=== PATIENT | female | born 1970 | race American Indian/Alaskan Native ===

== ENCOUNTER 2018-05-11 05:51 | Inpatient (IN) | payer BC ==
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
--- NOTE | 2018-05-10 10:42 | Anesthesia Consultation ---
Addendum entered and electronically signed by EULALIO WHITTEN MD 05/11/18 08:00: Examined immediately prior to procedure. No change in health since seen in pre- assessment. Consented for preop TAP block. Original Note: Anesthesia Consult and Med Hx Date of service: 05/10/18 - Airway Anesthetic Teeth Evaluation: Poor ROM Head & Neck: Adequate Mental/Hyoid Distance: Adequate Mallampati Class: Class III Intubation Access Assessment: Possibly Difficult - Pulmonary Exam CTA: Yes - Cardiac Exam Cardiac Exam: RRR - Pre-Operative Health Status ASA Pre-Surgery Classification: ASA3 Nerve Block: Will attempt TAP, pt is morbidly obese - Pulmonary Hx Asthma: Yes (Last used inhaler 1 mo ago) - Central Nervous System Hx Psychiatric Problems: No - Other Systems Hx Cancer: No
[2018-05-10 10:59] LABS: Basophils % (Auto) 0.8 % (0.0-1.8); Eosinophils # (Auto) 0.2 K/mm3 (0.0-0.4); Hematocrit 37.7 % (30.3-42.9); Lymphocytes # (Auto) 2.3 K/mm3 (1.2-5.4); Lymphocytes % (Auto) 46.5 % (13.4-35.0); Mean Corpuscular HGB Conc 32 % (30-34); Mean Corpuscular Volume 92 fl (79-97); Monocytes # (Auto) 0.5 K/mm3 (0.0-0.8); Monocytes % (Auto) 9.3 % (0.0-7.3); Platelet Count 293 K/mm3 (140-440); Red Blood Count 4.11 M/mm3 (3.65-5.03); Red Cell Distribution Width 14.4 % (13.2-15.2)
[2018-05-10 11:20] LABS: BUN/Creatinine Ratio 13; Blood Urea Nitrogen 10 mg/dL (7-17); Calcium 8.8 mg/dL (8.4-10.2); Hemolysis Index 6
[2018-05-11] MEDS ORDERED: PEPCID IV NR (06:00)
[2018-05-11] MEDS ORDERED: VERSED IV NR (06:00)
[2018-05-11] MEDS ORDERED: NEURONTIN PO NR (06:00)
[2018-05-11] MEDS ORDERED: LACTATED RINGERS 1,000 ML IV SCH (06:00)
[2018-05-11] MEDS ORDERED: NACL BACTERIOSTATIC INFILTRATI ONE (06:30)
[2018-05-11] MEDS ORDERED: CLEOCIN 600 MG/50 mL 600 MG/50 ML BAG IV SCH (07:00)
[2018-05-11] MEDS ORDERED: GENTAMICIN 160 MG in NACL 0.9% 100 ML IV SCH (07:00)
[2018-05-11] MEDS ORDERED: NEOSPORIN GU IR ONE ×2 (07:18→08:45)
[2018-05-11] MEDS ORDERED: SUBLIMAZE ONE (07:20)
[2018-05-11] MEDS ORDERED: DIPRIVAN 10 MG/ML IV ONE (07:21)
[2018-05-11] MEDS ORDERED: XYLOCAINE MPF 2% ONE (07:21)
[2018-05-11] MEDS ORDERED: ZOFRAN ONE (07:22)
[2018-05-11] MEDS ORDERED: MARCAINE 0.25% INFILTRATI ONE (07:22)
[2018-05-11] MEDS ORDERED: DECADRON ONE ×2 (07:22)
[2018-05-11] MEDS ORDERED: XYLOCAINE 1% 20 mL ONE (07:22)
[2018-05-11] MEDS ORDERED: ZEMURON IV ONE ×3 (07:23→11:27)
[2018-05-11] MEDS ORDERED: ROBINUL ONE ×2 (07:23→13:16)
--- NOTE | 2018-05-11 08:01 | Anesthesia Day of Surgery ---
Anesthesia Day of Surgery - Day of Surgery Patient Examined: Yes Patient H&P Reviewed: Yes Patient is NPO: Yes
[2018-05-11] MEDS ORDERED: NACL 0.9% IR ONE ×3 (08:44→08:45)
[2018-05-11] MEDS ORDERED: NACL 0.9% 100 ML ONE (09:51)
[2018-05-11] MEDS ORDERED: NEO SYNEPHRINE ONE (09:51)
[2018-05-11] MEDS ORDERED: METHYLENE BLUE ONE (11:14)
[2018-05-11] MEDS ORDERED: METHYLENE BLUE IRRIGATION ONE (11:27)
--- NOTE | 2018-05-11 13:00 | Post Operative Note ---
Date of procedure: 05/11/18 Pre-op diagnosis: sigmoid colon injury Post-op diagnosis: same Findings: 3 cm serosal tear in anterior wall of sigmoid colon. No discrete perforation/hole seen. +leak test. After repair, leak test was negative Procedure: Robotic primary repair of sigmoid colon injury Anesthesia: ASHLEY Surgeon: PABLO JOE Estimated blood loss: none Condition: stable Disposition: other (OR - Dr. Mills to complete procedure)
[2018-05-11] MEDS ORDERED: DILAUDID ONE ×3 (13:17→14:58)
--- NOTE | 2018-05-11 13:19 | Operative Report ---
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 Valdez Findings: Uterus approximately 18-20 weeks in size with multiple leiomyomata largest approximately 12 cm in diameter normal tubes and ovaries bilaterally Specimen(s): Uterus with an cervix and bilateral fallopian tubes Procedure: Patient was brought to the operating room where general anesthesia was induced without difficulty. Patient was placed in the dorsal lithotomy position. Prepped and draped in the usual sterile manner for robotic procedure. Valle catheter was placed without difficulty. Speculum was placed in the vagina. A large V-Care Uterine manipulator was placed without difficulty. Attention was now switched to the patient's abdomen. A vertical supra-umbilicus incision was made with a scalpel. A 10-12 trocar was placed in this incision under direct visualization. Intra-abdominal placement was verified with no evidence of internal organ damage. The patient pelvic findings were noted as above. It was determined that the patient was a candidate for robotic procedure. On both sides the umbilical incision at about 8 cm, incisions were made for robotic trocar. Each robotic trocar was placed under direct visualization with no evidence of internal organ damage. Two assistant customer service manager ports were then placed. One 8-10 trocar was placed 2 fingerbreadths above the right iliac crest. The second [address] between the camera port and the right robotic arms port. At this time the patient was placed in extreme Trendelenburg. The da Pepito robot was then docked on the patient's left side. The trocars connected to the robot appropriately. At this time I took my place under the robotic operating muñoz. Starting on the patient's right side the mesosalpinx of the tube were cauterized for mild distal to proximal tube. Bipolar cautery was placed across the proximal portion of the fallopian tube. This area was cauterized and cut the fallopian tube was then removed from the large porcelain buildup assistant port. Utero-ovarian complex was cauterized and cut. This was followed by cauterizing and cutting the right fallopian tube and right round l igament. The broad ligament was then opened. The bladder flap was formed anteriorly. The posterior broad ligament was then excised. The uterine vessels were skeletonized. The ureter was clearly seen out of the operative field. The bladder was pushed away from the anterior uterus. Attention was then switched to the patient's left side. The same procedure was repeated on the left side with perform the salpingectomy followed by isolating the uterine vessels cauterized and cutting and completing the bladder flap from the left side. At this time the uterus was appearing very cyanotic. After inspecting the bladder flap insured no evidence of bladder injury, the colpotomy was then started. Incision started at 6:00 until the V-Care could be seen. This incision was extended from 6:00 to 9:00. Then from 6:00 to 3:00. Then from 9:00 to 12:00. This incision was extended from 3:00 to 12:00. At this time colpotomy was complete with no evidence of adjacent organ damage. The large ut erus was removed through the colpotomy with coring incisions and multiple removals of myomas through the vagina. Your one attempt to regrasped the specimen did type and grasped the sigmoid colon with tenaculum revealed serosal tears. The entire specimen was removed through the vagina. At this time a return to my position under the operating muñoz. The vaginal cuff was irrigated and cauterized and found to be hemostatic. The cuff was closed with roboticly using 0 V- Lock suture. This closure was hemostatic after irrigation and Bovie. All pedicles were inspected and found to be hemostatic. The ureters were identified bilaterally and found to be functioning normal. The patient had clear urine in the Valle catheter with no evidence of mixture with blood. Methylene blue was then inserted into the patient's bladder 180 mL with no evidence of leak. Patient pelvis was then filled with irrigation fluid. Patient was undocked from the da Pepito placed flat and reverse Trendelenburg air tested in the rectum with the septal did reveal some bubbles and that time Dr. Robles was then consulted. Please see Dr.'s dictated operative note. All instruments were then removed. The large trocar sites were closed in layers and 4-0 Vicryl. The smaller incisions were closed subcuticularly with 4-0 Vicryl. The patient tolerated procedure well. She was awakened in the operating room and accompanied to the recovery room in good condition.
[2018-05-11] MEDS ORDERED: LACTATED RINGERS 1,000 ML ONE (14:27)
[2018-05-11] MEDS: DILAUDID IV PRN ×2 (14:29→14:58)
--- NOTE | 2018-05-11 14:54 | Post Anesthesia Evaluation ---
- Post Anesthesia Evaluation Patient Participated: Yes Airway Patent: Yes Stable Respiratory Function: Yes Nausea/Vomiting: No Temp > 96.8F: Yes Pain Manageable: Yes Adequeate Hydration: Yes Anesthesia Complications: No
[2018-05-11] MEDS ORDERED: D5LR 1,000 ML IV SCH (16:00)
[2018-05-11] MEDS: TORADOL IV SCH ×2 (16:15→22:50)
[2018-05-11] MEDS: CLEOCIN 600 MG/50 mL 600 MG/50 ML BAG IV SCH (18:00)
[2018-05-11] MEDS: GENTAMICIN/NS 80 MG/100 ML 100 ML IV SCH (18:30)
[2018-05-11] MEDS ORDERED: MORPHINE IV ONE (20:57)
[2018-05-12 04:25] LABS: Hemoglobin 10.7 gm/dl (10.1-14.3)
[2018-05-12] MEDS: CLEOCIN 600 MG/50 mL 600 MG/50 ML BAG IV SCH (05:00)
[2018-05-12] MEDS: TORADOL IV SCH ×2 (05:01→11:20)
[2018-05-12] MEDS: GENTAMICIN/NS 80 MG/100 ML 100 ML IV SCH (06:11)
--- NOTE | 2018-05-12 08:46 | Progress Note ---
Assessment and Plan POD#1, Doing well, good UO, no complaints DINORA drain intact, minimal serosanguinous fluid in bulb. ~300mL total fluid from drain over the last 24h. H/H stable. Dr. Gamble to evaluate patient today for ? removal of drain Will consider d/c home this pm - Patient Problems (1) History of robot-assisted laparoscopic hysterectomy Current Visit: Yes Status: Acute (2) Status post bilateral salpingectomy Current Visit: Yes Status: Acute (3) Serosal tear of colon Current Visit: Yes Status: Acute Subjective Date of service: 05/12/18 Patient Reports: Positive: no new complaints, tolerating liquids well, no flatus, afebrile Objective Vital Signs - 12hr 05/11/18 05/12/18 05/12/18 22:19 02:07 05:40 Temperature 98.9 F 98.8 F 98.6 F Pulse Rate 85 83 87 Respiratory 16 18 18 Rate Blood Pressure 142/76 112/63 122/65 O2 Sat by Pulse 98 94 96 Oximetry 05/12/18 08:05 Temperature 98.6 F Pulse Rate Respiratory 18 Rate Blood Pressure 125/64 O2 Sat by Pulse Oximetry - General physical appearance well developed, well nourished, no distress - Respiratory normal expansion, normal respiratory effort, clear to percussion - Abdomen soft, bowel sounds normal, not distended, surgical scars (intact with slight erythema at RLQ incision, no drainage) - Psychiatric oriented to time, oriented to person, oriented to place, speech is normal, memory intact - Labs 05/12/18 04:12 05/10/18 10:30
[2018-05-12] MEDS: COLACE PO SCH ×2 (09:00→21:24)
[2018-05-12] MEDS: NORCO 5/325 PO PRN ×3 (09:00→21:24)
--- NOTE | 2018-05-12 14:19 | Progress Note ---
Assessment and Plan - Patient Problems (1) Serosal tear of colon Current Visit: Yes Status: Acute Plan to address problem: Pt stable. s/p robotic assisted repair of serosal tear of colon - 05/11/18 - POD#1. Patient appears to be doing very well. We will advance to a regular diet. As a precaution, would prefer that patient have a bowel movement before removing the drain and discharge. Discussed with the patient and she was in agreement. Also discussed with Dr. Arguello and Dr. Robles. Subjective Date of service: 05/12/18 Patient Reports: Positive: feels better, pain is less, tolerating liquids well, no bowel movement. Negative: nausea, vomiting Objective Vital Signs - 12hr 05/12/18 05/12/18 05/12/18 05:40 08:05 12:00 Temperature 98.6 F 98.6 F 98.5 F Pulse Rate 87 76 Respiratory 18 18 18 Rate Blood Pressure 122/65 125/64 Blood Pressure 139/76 [Right] O2 Sat by Pulse 96 98 Oximetry - General physical appearance no distress, no pain, other (looks well. good spirits) - Respiratory normal expansion, normal respiratory effort - Abdomen soft, tender (appropriate over the incisions. No tenderness elsewhere), not d istended, not guarding, not rigid, other (drain - serosang - minimal amount) - Psychiatric oriented to time, oriented to person, oriented to place, speech is normal, memory intact - Labs 05/12/18 04:12 05/10/18 10:30
[2018-05-12] MEDS ORDERED: APRESOLINE IV ONE (15:27)
[2018-05-13] MEDS: NORCO 5/325 PO PRN ×3 (02:35→14:30)
--- NOTE | 2018-05-13 08:19 | Progress Note ---
Assessment and Plan Doign well, desires d/c home, will allow home this pm if ok with Dr. Gamble Discharge and wound care instructions and postop precautions given - Patient Problems (1) History of robot-assisted laparoscopic hysterectomy Current Visit: Yes Status: Acute (2) Status post bilateral salpingectomy Current Visit: Yes Status: Acute (3) Serosal tear of colon Current Visit: Yes Status: Acute Subjective Date of service: 05/13/18 Patient Reports: Positive: no new complaints, tolerating a regular diet, voiding w/o difficulty, bowel movement Objective Vital Signs - 12hr 05/13/18 05/13/18 05/13/18 00:21 05:35 07:30 Temperature 98.6 F 98.6 F 97.9 F Pulse Rate 86 82 82 Respiratory 18 18 16 Rate Blood Pressure 134/72 133/86 135/83 O2 Sat by Pulse 95 96 96 Oximetry - General physical appearance well developed, well nourished, no distress (denies bleeding) - Respiratory normal respiratory effort, clear to auscultation - Abdomen soft, tender, bowel sounds normal, surgical scars (trocar sites c/d/i, no s/s infection) - Genitourinary normal external genitalia, other (scant pinkish drainage on peripad) - Psychiatric oriented to time, oriented to person, oriented to place, speech is normal - Labs 05/12/18 04:12 05/10/18 10:30
[2018-05-13] MEDS: COLACE PO SCH (09:30)
[2018-05-13 12:35] VITALS: BP 154/86
--- NOTE | 2018-05-13 13:02 | Progress Note ---
Assessment and Plan 48 yo F s/p robotic assisted repair of serosal tear of colon - 05/11/18 - POD#2 (1) Serosal tear of colon 1. Dinora drain removed intact 2. Pt instructed to remain on soft diet at home for the next 1 week. 3. continue colace daily 4. nothing per rectum 5. may call surgery office with questions or follow up prn Ok to discharge home. D/W Dr. Arguello Subjective Date of service: 05/13/18 Narrative: Pt seen and examined. No acute complaints. Tolerating reg diet. No f/c, n/v. Incisional soreness is controlled with pain medication. She had multiple BMs which were loose. + Flatus. Objective Vital Signs - 12hr 05/13/18 05/13/18 05/13/18 05:35 07:30 12:32 Temperature 98.6 F 97.9 F 98.5 F Pulse Rate 82 82 89 Respiratory 18 16 16 Rate Blood Pressure 133/86 135/83 154/86 O2 Sat by Pulse 96 96 97 Oximetry - General physical appearance Narrative Exam: Gen: AAOx3. NAD CV: S1, S2+ Resp: even and unlabored Abd: soft, NT, ND. incisions c/d/i. DINORA drain is serosang, clear. Ext: no c/c/e - Labs 05/12/18 04:12 05/10/18 10:30
--- NOTE | 2018-05-13 13:51 | Discharge Summary ---
Providers - Providers Date of Admission: 05/11/18 13:21 Date of discharge: 05/13/18 Attending physician: KIANA SALAZAR Primary care physician: GUILLAUME GALLEGOS Hospitalization Condition: Good Procedures: ANNABEL, (B) salpingectomy with repair of rectal serosal injury Hospital course: Unremarkable, she had return of bowel function on POD#2, she is tolerating a regular soft diet and desires discharge home Disposition: TO HOME OR SELFCARE - Discharge Diagnoses (1) History of robot-assisted laparoscopic hysterectomy Status: Acute (2) Status post bilateral salpingectomy Status: Acute (3) Serosal tear of colon Status: Acute Core Measure Documentation - Palliative Care Palliative Care/ Comfort Measures: Not Applicable - Core Measures Any of the following diagnoses?: none Exam - Constitutional Vitals: Temp Pulse Resp BP Pulse Ox 98.5 F 89 16 154/86 97 05/13/18 12:32 05/13/18 12:32 05/13/18 12:32 05/13/18 12:32 05/13/18 12:32 General appearance: Present: no acute distress Plan Activity: other (No sex, no driving, void frequently, use [employer] incentive spirometer every hour while awake, ambulate ~1mile on your property a day) Weight Bearing Status: Weight Bear as Tolerated Diet: other (as directed) Wound: open to air, keep clean and dry Special Instructions: no heavy lifting (greater than 25lbs) Additional Instructions: 1. Yonathan drain removed intact. 2. Pt instructed to remain on soft diet at home for the next 1 week. 3. continue colace daily. 4. nothing per rectum. 5. may call surgery office with questions or follow up prn Follow up with: PABLO JOE DO [Staff Physician] - 7 Days GUILLAUME GALLEGOS MD [Primary Care Provider] - 7 Days KIANA SALAZAR MD [Staff Physician] - (as scheduled) Prescriptions: Ibuprofen [Motrin 800 MG tab] 800 mg PO Q6H PRN #30 tablet PRN Reason: Pain oxyCODONE /ACETAMINOPHEN [Percocet 5/325 mg] 1 - 2 tab PO Q4H PRN #30 tablet PRN Reason: Pain, Moderate
--- NOTE | 2018-05-16 13:35 | Operative Report ---
PREOPERATIVE DIAGNOSIS: Sigmoid colon injury. POSTOPERATIVE DIAGNOSIS: Sigmoid colon injury. FINDINGS: 3 cm serosal tear in the anterior wall of the sigmoid colon, no discrete perforation is seen. Positive leak test. After repair, leak test was negative. PROCEDURE PERFORMED: Robotic-assisted primary repair of sigmoid colon injury. ANESTHESIA: General endotracheal anesthesia. SURGEON: Demetria Robles DO ESTIMATED BLOOD LOSS: None. CONDITION: Stable. DISPOSITION: In OR for Dr. Mills to complete his portion of the procedure. HISTORY OF PRESENT ILLNESS AND INDICATION: The patient is a 48-year-old female who was scheduled for a robotic-assisted total hysterectomy with bilateral salpingectomy due to a large leiomyomata and menometrorrhagia and dysmenorrhea with Dr. Mills. The patient had undergone the hysterectomy and salpingectomy portion of the procedure; however, Dr. Mills suspected possible colon injury and therefore, an intraoperative consultation was requested. A leak test through the rectum did show a positive leak concerning for a sigmoid colon injury. PROCEDURE IN DETAIL: The patient was placed in Trendelenburg and the robot was docked. A fenestrated bipolar grasper was placed in arm #2 and a macrina needle parcel post truck driver in arm #1 and the surgeon was transferred to the console. Upon inspection of the sigmoid colon, a 3 cm longitudinal serosal tear was seen; however, no discrete perforation or hole was seen in the colon. There was no spillage of colonic contents. There was some old irrigation in the pelvis. The two ends of the perforation were clearly identified and a 2-0 silk stay suture was placed at the proximal apex of the perforation to aid with retraction by the sociology research assistant. Using a 3-0 V-Loc continuous running suture, the serosal tear was repaired in a 2-layer fashion. The V-Loc was first ran into full thickness from the distal to proximal apex of the injury and then ran from the proximal to distal in a Lembert fashion. Once the repair was complete, a leak test was performed by filling the pelvis with fluid and submerging the colon in the fluid. Air was insufflated into the rectum by the sociology research assistant and the leak test was negative. The robot was then undocked and a 19-Khmer Kareem drain was placed in the pelvis over the area of the repair and brought out through the left mid abdominal 8 mm robotic trocar and sutured into place using a 3-0 nylon drain stitch. The patient remained in stable condition throughout this portion of the procedure and Dr. Mills assumed care of the patient at this point to complete his portion of the procedure. JOB# [id number] JARROD/STEPAN DOMINGO
--- NOTE | 2018-05-18 12:01 | Query- Outcome Clarification ---
Rolanda Barajas Date:____05/18/18 Protection Specialist/CDS:_[email or web address]/[email or web address] Phone#:__[phone] Exercise your independent professional judgment when responding to this query. Questions asked do not imply a particular answer is desired or expected. We greatly appreciate your clarification on this issue. Clinical Documentation States: This is a 48 years old female who presents with uterine fibroids. Operative Report: Date of procedure: 05/11/2018 Pre-operative diagnosis: Large leiomyomata with menometrorrhagia and dysmenorrhea Procedure name(s):Robotic Assisted Total Hysterectomy with bilateral salpingectomy Surgeon: Blayne Mills MD Date of procedure: 05/11/18 Pre-op diagnosis: sigmoid colon injury Post-op diagnosis: same Findings: 3 cm serosal tear in anterior wall of sigmoid colon. No discrete perforation/hole seen. +leak test. After repair, leak test was negative Procedure: Robotic primary repair of sigmoid colon injury Anesthesia: GETA Surgeon: PABLO JOE Please clarify the following based on the above: A diagnosis of __serosal tear in anterior wall of sigmoid colon____, is documented and the patient underwent _Robotic primary repair of sigmoid colon injury procedure. Please specify if the above mentioned diagnosis is; Please state your response below and also document the same in your Progress Notes and/or Discharge Summary and indicate if the condition was present on admission. PHYSICIAN RESPONSE: [ ] Clinically insignificant (Not requiring additional clinical evaluation, diagnostic procedures, nursing time, therapeutic treatment or increased length of stay) [ ] Clinically significant (Leads to a significant clinical event, responsible for an additional significant procedure or other unforeseen or not routinely expected conditions( Please check all that apply) [ ] A complication of the procedure [x] Integral or inherent to the procedure, thus not a complication [ ] Not a complication of procedure [ ] A complication of the procedure [ ] Other, please specify; [ ] Cannot be clinically determined (POA-W) [ ] Comment/Explanation: Present on Admission: [ ] Yes (Y) [ ] Clinically undeterminable (W) [x] No (N) Please also document response in your Progress Notes and/or Discharge Summary and indicate if the condition was present on admission. MTDD
== END 2018-05-13 15:00 | disposition home or self-care (01) | DRG 742 ==
LOC: OR 05:51 → OB 13:21
PROVIDERS: ADMIT Obstetrics & Gynecology; ATTEND Obstetrics & Gynecology
PROC: 0UT94ZZ Resection of Uterus, Percutaneous Endoscopic Approach (ICD-10-PCS; principal; 2018-05-11)
PROC: 0UT74ZZ Resection of Bilateral Fallopian Tubes, Percutaneous Endoscopic Approach (ICD-10-PCS; 2018-05-11)
PROC: 0DQN4ZZ Repair Sigmoid Colon, Percutaneous Endoscopic Approach (ICD-10-PCS; 2018-05-11)
PROC: 8E0W4CZ Robotic Assisted Procedure of Trunk Region, Percutaneous Endoscopic Approach (ICD-10-PCS; 2018-05-11)
DX: D25.1 Intramural leiomyoma of uterus (principal); Z68.41 Body mass index [BMI] 40.0-44.9, adult; R10.2 Pelvic and perineal pain; N94.6 Dysmenorrhea, unspecified; N92.1 Excessive and frequent menstruation with irregular cycle; N92.0 Excessive and frequent menstruation with regular cycle; J45.909 Unspecified asthma, uncomplicated; E66.01 Morbid (severe) obesity due to excess calories; Z88.0 Allergy status to penicillin; Z88.2 Allergy status to sulfonamides; Z88.1 Allergy status to other antibiotic agents; Y83.9 Surgical procedure, unspecified as the cause of abnormal reaction of the patient, or of later complication, without mention of misadventure at the time of the procedure; Y92.234 Operating room of hospital as the place of occurrence of the external cause
CPT/HCPCS: 36415; 64450; 80048; 84703; 85014; 85018; 85025; 86850; 86900; 86901; 88302; 88307; G0378; A4217; J1100; J1170; J1580; J1885; J2250; J2270; J2370; J2405; J2704; J3010; J7120; J7121; Q9968